=== PATIENT | male | born 1985 | race Hispanic/Latino ===

== ENCOUNTER 2024-02-07 23:51 | Emergency (ER) | payer SELFPAY ==
[~2024-02-07] VITALS: Ht 162.6 cm; Wt 65.0 kg
[~2024-02-07 23:51] MED LIST: PEPCID20 MG PO
[2024-02-08] VITALS (17 sets, daily range): BP systolic 81–122; BP diastolic 49–87
[2024-02-08] MEDS ORDERED: PROMETHAZINE HCL 25 MG/ML AMP IV ONE (00:15)
[2024-02-08] MEDS ORDERED: SODIUM CHLORIDE 0.9% 1,000 ML IV ONE (00:15)
[2024-02-08] MEDS ORDERED: MORPHINE SULFATE 4 MG/ML VIAL IV ONE (00:15)
[2024-02-08] MEDS ORDERED: KETOROLAC TROMETHAMINE 30 MG/ML SDV IV ONE (00:15)
[2024-02-08] MEDS ORDERED: Diph, Acellular Pertussis, Tet 0.5 ML/VIAL (Tdap) SDV IM ONE (00:15)
[2024-02-08 01:01] LABS: BASO% 0.2 % (0-3); EOS% 0.1 % (0-8); HEMATOCRIT 40.6 % (39.0-50.0); HEMOGLOBIN 13.7 g/dl (14.0-18.0); LYMPH% 9.2 % (15-41); MEAN CELL VOLUME 90.6 fL CALC (80.0-100.0); MEAN CORPUSCULAR HGB 30.6 pG CALC (26.0-32.0); MEAN CORPUSCULAR HGB CONC 33.7 g/dL CAL (32.0-36.0); MONO% 4.7 % (2-13); NEUT# 20.19 thou/uL (1.82-7.42); NEUT% 84.8 % (42-76); RED BLOOD COUNT 4.48 mill/uL (4.70-6.10); RED CELL DISTRI WIDTH 12.5 % (11.5-15.5)
[2024-02-08 01:11] LABS: ALBUMIN 4.7 g/dL (3.2-5.0); BILIRUBIN, TOTAL 0.4 mg/dL (0.2-1.3); CREATININE 0.8 mg/dL (0.7-1.3); POTASSIUM 3.4 mmol/l (3.5-5.1); TOTAL PROTEIN 7.6 g/dL (6.3-8.2)
[2024-02-08 02:15] LABS: URINE BILIRUBIN - DIPSTICK Negative (NEGATIVE); URINE BLOOD DIPSTICK Negative (NEGATIVE); URINE GLUCOSE - DIPSTICK Negative (NEGATIVE); URINE KETONE Negative (NEGATIVE); URINE LEUK ESTERASE Negative (NEGATIVE); URINE NITRITE - DIPSTICK Negative (Negative); URINE PH 5.5 (4.5-8.0); URINE PROTEIN - DIPSTICK Negative (NEG-TRACE); URINE SPECIFIC GRAVITY <=1.005; URINE UROBILINOGEN - DIPSTICK 0.2 E.U./dL (0.2)
[2024-02-08 02:16] LABS: URINE COLOR Yellow
[2024-02-08] MEDS ORDERED: BACTRIM DS1 TAB PO (02:25)
[2024-02-08] MEDS ORDERED: TYLENOL # 31 TA1 PO (02:25)
== END 2024-02-08 05:43 | disposition home or self-care (01) | DRG 605 ==
LOC: ED 23:51
PROVIDERS: Family Medicine
DX: S71.132A Puncture wound without foreign body, left thigh, initial encounter (principal); X95.9XXA Assault by unspecified firearm discharge, initial encounter; Y92.008 Other place in unspecified non-institutional (private) residence as the place of occurrence of the external cause; Z72.0 Tobacco use
CPT/HCPCS: J0690